=== PATIENT | male | born 1945 | race Caucasian/White ===

== ENCOUNTER 2018-07-11 10:00 | Day surgery (SDC) | payer MEDICARE, SELFPAY ==
[2018-07-06 11:57] VITALS: BMI 28.1
[2018-07-11] VITALS (9 sets, daily range): BP systolic 138–155; BP diastolic 74–86; PULSE 70–81; RESP 11–20; TEMP 36.2–36.8; O2SAT 93–98; BMI 27.1
--- NOTE | 2018-07-11 11:41 | PM.PREOP ---
Pre-operative Note Interval Note History & Physical reviewed/Exam performed by Physician: Yes Changes to H&P: No
[2018-07-11] MEDS: LACTATED RINGERS 1,000 ML 42 ML IV (12:00)
[2018-07-11] MEDS: INSULIN REGULAR 100 UNIT/ML 3 ML VIAL SUBCUT (12:01)
--- NOTE | 2018-07-11 12:09 | SUR.PREOP ---
Pt reports numbness and tingling in left leg and left buttocks that is chronic.
[2018-07-11] MEDS: CEFAZOLIN 2 GM/100 ML FROZ.PIGGY IV (12:15)
--- NOTE | 2018-07-11 12:46 | SUR.OPER ---
Prone on spine table, head in foam head support, padded chest and pelvic supports, gel pad at knees, lower legs supported by pillows; nipples, genitalia and toes free of pressure, arms secured on foam padded arm boards at <90 degrees abduction. Tape over blanket at thigh secured to table.
[2018-07-11] MEDS: methylPREDNISolone acet DEPO 40 MG/ML VIAL INJ (12:51)
[2018-07-11] MEDS: BUPIVACAINE 0.25% W/ EPI VIAL 30 ML INJ (12:52)
--- NOTE | 2018-07-11 13:15 | DI.RAD.S_ITS ---
PROCEDURE: XR LUMBAR SPINE 2-3V INDICATIONS: L5-S1 MICRODISCECTOMY TECHNIQUE: 2 views of the lumbar spine were acquired. COMPARISON: [facility], MR, MR LUMBAR SPINE WITHOUT CONTRAST, 06/26/2018, 14:07. [facility], CR, XR LUMBAR SPINE 2 OR 3 VIEWS, 06/26/2018, 10:44. FINDINGS: Bones: L5-S1 microdiscectomy port is centered over the posterior elements at that level, left-sided oblique approach. Soft tissues: Overlying bowel gas pattern is normal. No suspicious soft tissue calcifications. IMPRESSION: Successful port localization for microdiscectomy on the left at L5-S1. Dictated by: Wilberto Garcia M.D. on 07/11/2018 at 13:26 Approved by: Wilberto Garcia M.D. on 07/11/2018 at 13:27
--- NOTE | 2018-07-11 13:22 | PM.OP.1 ---
Operative Date/Time/Diagnoses Date of procedure: 07/11/18 Time of procedure: 12:22 Pre-op diagnosis: 1. L5-S1 disc herniation 2. L5-S1 spinal stenosis Post-op diagnosis: same Procedure & Clinicians Procedure: 1. L5-S1 microdiscectomy 2. Utilization of microsurgical technique and operating microscope Same procedure as scheduled: Yes Indications: Patient has been having chronic back pain and worsening lumbar radiculopathy. Patient failed multiple conservative management with worsening pain weakness and numbness in her lower extremity. Patient has been having difficulty performing activity of daily living. After discussing risks benefits of treatment options, patient elected proceed with surgery. Surgeon: Stephane Vasquez Assignment Officer: Enedina Young Click Yes if Unassisted: No Anesthesia Type: General Operative Notes Closure Type: primary Specimen(s): none sent Blood products transfused: none Procedure in detail: Patient was seen in the preoperative area. Risks and benefits of the surgery was discussed with the patient. Informed consent was obtained from the patient and placed in the chart. Surgical site was marked. Patient was taken to the operative room. General anesthesia was administered. Prophylactic antibiotic was given to the patient less than 30 min before the incision was made. Patient was placed into a prone position on the Noé table. Patient's back was then prepped and draped in the sterile fashion. Time-out was performed at this time. Using AP and lateral C-arm imaging the interval between L5-S1 was identified and marked on patient's back. A 1 inch incision 1 in from midline was made. The fascia was incised in line with skin incision. Globus MARS retractors was placed inside the incision and docked onto the L5 lamina. Using microsurgical technique and operating microscope, a L5 laminotomy was performed using a Kerrison rongeur. Liagamentum flavum was resected at the site of the laminotomy. The disc space at L5-S1 was identified. Microdiscectomy was performed by incising the annulus with #11 blade. A herniated disc fragment was extruded from the annulus incision. The disc fragment was causing significant compression on the traversing S1 nerve root. Microcurettes and pituitary was used to removed herniated disc fragments of disc from the epidural space. After the microdiskectomy was completed, the area medial lateral superior and inferior to the area of the microdiskectomy was inspected and explored using a micro curette. No other impinging structure was identified. The wound was then irrigated with sterile normal saline. 40 mg Depo-Medrol was placed into the epidural space. The deep fascia was closed with 1-0 Vicryl. The subcutaneous tissue was closed with 2-0 Vicryl. The skin was closed with 4-0 Monocryl. Patient tolerated the procedure well. There were no complications. Patient was transferred recovery room in stable condition.
[2018-07-11] MEDS: HYDROCODONE/ACET 5/325 TABLET 1 TAB PO (14:15)
== END 2018-07-11 14:43 | disposition home or self-care (01) ==
PROVIDERS: PCP Family Medicine; Visit Provider Orthopaedic Surgery Orthopaedic Surgery of the Spine
PROC: (CPT 63030; principal; 2018-07-11 12:45)
DX: M51.16 Intervertebral disc disorders with radiculopathy, lumbar region (principal); M48.07 Spinal stenosis, lumbosacral region; M43.17 Spondylolisthesis, lumbosacral region; I10 Essential (primary) hypertension; E78.00 Pure hypercholesterolemia, unspecified; E11.9 Type 2 diabetes mellitus without complications; Z79.84 Long term (current) use of oral hypoglycemic drugs
CPT/HCPCS: 63030; 72100; 76000; J0690; J1030; J2405; J2704; J3010

== ENCOUNTER 2019-07-19 08:45 | Day surgery (SDC) | payer MEDICARE, SELFPAY ==
[2019-07-08 09:39] VITALS: BMI 26.2
[2019-07-19] VITALS (17 sets, daily range): BP systolic 97–146; BP diastolic 66–83; PULSE 67–754; RESP 10–20; TEMP 35.9–36.9; O2SAT 95–98; BMI 26.2
--- NOTE | 2019-07-19 | DI.RAD.S_ITS ---
PROCEDURE: XR LUMBAR SPINE 2-3V INDICATIONS: L5-S1 TLIF TECHNIQUE: 2 intraoperative fluoroscopic views of the lumbar spine were acquired. COMPARISON: [facility], , XR LUMBAR SPINE 2-3V, 07/11/2018, 12:41. FINDINGS: Intraoperative fluoroscopic images of lower lumbar spine shows transpedicular fusion of L5 and S1 vertebral bodies with intervertebral spacer placement and at L5-S1 level. IMPRESSION: Fluoroscopy guidance was provided intraoperatively for fusion of L5 and S1 vertebral bodies. Dictated by: Anthony Baca M.D. on 07/19/2019 at 15:09 Approved by: Anthony Baca M.D. on 07/19/2019 at 15:11
[2019-07-19] MEDS: GABAPENTIN 300 MG CAPSULE PO (09:38)
[2019-07-19] MEDS: ACETAMINOPHEN 325 MG TABLET 975 MG PO (09:39)
[2019-07-19] MEDS: LACTATED RINGERS 1,000 ML 42 ML IV ×2 (09:40→13:59)
[2019-07-19] MEDS: CELECOXIB 200 MG CAPSULE 400 MG PO (09:40)
[2019-07-19] MEDS: CEFAZOLIN 2 GM/100 ML FROZ.PIGGY IV ×2 (12:13→20:14)
[2019-07-19] MEDS: BUPIVACAINE LIPOSOME 266 MG/20 ML VIAL INJ (13:01)
[2019-07-19] MEDS: BUPIVACAINE 0.25% W/ EPI 30 ML VIAL INJ (13:04)
--- NOTE | 2019-07-19 14:27 | P.OP_ITS ---
Operative Date/Time/Diagnoses Date of procedure: 07/19/19 Time of procedure: 12:27 Pre-op diagnosis: 1. L5-S1 spinal stenosis 2. L5-S1 recurrent disc herniation with radiculopathy Post-op diagnosis: same Procedure & Clinicians Procedure: 1. L5-S1 Postero-lateral and posterior interbody fusion 2. L5-S1 interbody cage placement. 3. L5-S1 decompressive laminectomy with bilateral facetecomies 4. L5-S1 Posterior non-segmental instrumentation 5. Grandy of bone marrow from iliac crest 6. Utilization of microsurgical technique and operating microscope Same procedure as scheduled: Yes Indications: Patient has been having chronic back pain and worsening lumbar radiculopathy. The patient had prior lumbar microdiskectomy with good relief of pain with recurrences with symptoms. Patient failed multiple conservative management with worsening pain weakness and numbness in her lower extremity. Patient has been having difficulty performing activity of daily living. After discussing risks benefits of treatment options, patient elected proceed with surgery. Surgeon: Stephane Vasquez Hooker Operator: Karen Funez'Brien Click Yes if Unassisted: No Anesthesia Type: General Operative Notes Closure Type: primary Specimen(s): none sent Prosthetic devices, grafts, tissues, transplants, or devices: Globus revolve screws, Rise cage Estimated Blood Loss (mL): 50 Blood products transfused: none Procedure in detail: Patient was seen in the preoperative area. Risks and benefits of the surgery was discussed with the patient. Informed consent was obtained from the patient and placed in the chart. Surgical site was marked. Patient was taken to the operative room. General anesthesia was administered. Prophylactic antibiotic was given to the patient less than 30 min before the incision was made. Patient was placed into a prone position on the Noé table. Patient's back was then prepped and draped in the sterile fashion. Time- out was performed at this time. Using AP and lateral C-arm imaging the interval between L5-S1 was identified and marked on patient's back. A 2 inch incision 2 in from midline was made on the left side first. The fascia was incised in line with skin incision. Globus MARS retractors was placed inside the incision and docked onto the L5 lamina. Using microsurgical technique and operating microscope, a L5 laminectomy and L5-S1 facetectomy was performed using a Kerrison rongeur. The disc space at L5-S1 was identified. And a total diskectomy was performed at L5-S1 level. The endplates were decorticated using a rasp and shaver. The total diskectomy and decortication was performed at L5-S1 level in order to to accomplish a L5-S1 fusion. The local bone from the laminectomy and facetectomy was saved for local bone grafting. After the total diskectomy and decortication was completed, Bio4 bone graft material was combined with local bone that was harvested earlier. At this time, a separate skin is incision was made over the iliac crest. A Jamshidi needle was inserted into the iliac crest through a separate skin incision. 5 cc of bone marrow aspiration was obtained through the separate skin incision using a Jamshidi needle from the iliac crest. The bone marrow aspiration was combined with local bone and the Bio4 bone grafting material. The bone grafting material was placed into the L5-S1 interbody space along with a expandable cage. The cage was expanded to its maximum height using the torque limiting screwdriver. At this time a mirror image incision was made on the right side. The fascia was incised in line with the skin incision. Globus MARS retractor was inserted and docked onto the L4-5 posterolateral gutter. Using the power drill, posterior- lateral decortication was performed at L5-S1 level until bleeding cortical bone was identified. The remaining bone grafting material was placed into the L4-5 posterior lateral gutter he order to accomplish posterolateral fusion at the L5- S1 level. Using the double C-arm technique, pedicle screws were placed into the L5-S1 pedicles bilaterally. This was done by placing the Jamshidi needle into the pedicles, then placing the guidewires over the Jamshidi needle, and finally placing the cannulated screws over the guidewires bilaterally. After the pedicle screws were placed, 2 titanium rods was locked into the heads of the pedicle screws using locking caps and torque limiting screwdriver. After all the hardware was placed, and confirmed with AP and lateral C-arm imaging, the wound was then irrigated with sterile normal saline and packed with Ray-Fany gauze for 3 min to accomplish hemostasis. After the gauze was removed the deep fascia was closed with #1 Vicryl suture. The subcutaneous layer was closed with 2-0 Vicryl. The skin was closed with skin edilberto. Patient tolerated the procedure well. There were no complications. Complications: none Post-operative Condition: stable Disposition: PACU Plan for aftercare: Admit to inpatient hospital
[2019-07-19] MEDS: HYDROMORPHONE 2 MG INJ IV ×4 (14:47→15:04)
[2019-07-19] MEDS: hydrOXYzine pamoate 25 MG CAPSULE 50 MG PO (15:43)
[2019-07-19] MEDS: SODIUM CHLORIDE 0.9% 1,000 ML 100 ML IV (16:36)
[2019-07-19] MEDS: METFORMIN HCL 500 MG TABLET 1000 MG PO (16:40)
[2019-07-19] MEDS: SIMVASTATIN 40 MG TABLET PO (16:40)
--- NOTE | 2019-07-19 17:20 | PC.NURSE ---
Admission note: Patient arrived to floor A&O x4, pleasant and cooperative w/ staff. Pt reports pain 6/10 but tolerable and states some infreq. spasms from time to time. Patient's partner at bedside. Pt states baseline he has neuropathy in LLE, it is improved since surg. but still minimally present. Pt is eager to eat dinner. Education done regarding surgical precautions, using call light, ordering meals properly given dx: of DM. Pt is compliant with plan and care discussed at bedside, call light w/in reach, bed in low pos.
[2019-07-19] MEDS: HYDROCODONE/ACET 5/325 TABLET 2 TAB PO (17:48)
[2019-07-19] MEDS: DOCUSATE 100 MG CAPSULE PO (20:18)
[2019-07-19] MEDS: SENNOSIDES 8.6 MG TABLET 17.2 MG PO (20:19)
[2019-07-20 00:10] VITALS: BP 148/78; PULSE 73; RESP 19; TEMP 37; O2SAT 94
[2019-07-20] MEDS: HYDROCODONE/ACET 5/325 TABLET 2 TAB PO ×3 (00:11→12:27)
[2019-07-20] MEDS: SODIUM CHLORIDE 0.9% 1,000 ML 100 ML IV (00:11)
[2019-07-20 05:00] VITALS: BP 126/75; PULSE 77; RESP 19; TEMP 36.8; O2SAT 93
[2019-07-20] MEDS: CEFAZOLIN 2 GM/100 ML FROZ.PIGGY IV (05:00)
[2019-07-20 07:30] VITALS: BP 128/74; PULSE 67; RESP 16; TEMP 37.5; O2SAT 94
[2019-07-20] MEDS: DOCUSATE 100 MG CAPSULE PO (08:12)
[2019-07-20] MEDS: PANTOPRAZOLE 20 MG TABLET PO (08:12)
[2019-07-20] MEDS: hydroCHLOROthiazide 25 MG TABLET PO (08:12)
[2019-07-20] MEDS: METFORMIN HCL 500 MG TABLET 1000 MG PO (08:12)
[2019-07-20] MEDS: FLUoxetine 20 MG CAPSULE 40 MG PO (08:13)
--- NOTE | 2019-07-20 10:04 | PT.IIE ---
Current Diagnoses Spinal stenosis, lumbar region without neurogenic claudication (07/19/19) Other specified postprocedural states (07/19/19) Surgery Performed Operation Date: 07/19/19 11:15 Actual Procedures p L5-S1 TLIF - Stephane Vasquez MD Surgical History (Last Updated 07/08/19 @ 10:12 by Alisa Hammond, RN) History of arthroplasty of right knee (Acute ~2006) History of vasectomy (Acute) Hx of arthroscopy of left knee (Acute) Hx of colonoscopy (Acute 02/06/18) Hx of hemorrhoidectomy (Acute) Hx of hernia repair (Acute) Hx of microdiscectomy (Acute 07/11/18) Hx of tonsillectomy (Acute) Medical History (Last Updated 07/08/19 @ 10:22 by Alisa Hammond, GUILLE) Anxiety (Acute) BCC (basal cell carcinoma) (Acute ~1994) Depression (Acute) Diabetes (Acute) Diverticulitis (Acute ~2013) Hearing impaired (Acute) HTN (hypertension) (Acute) Hyperlipidemia (Acute) Hypomagnesemia (Acute) Knee fracture, right (Acute) Malaria (Acute ~1967) Peyronie's disease (Acute) PTSD (post-traumatic stress disorder) (Acute) Reflux esophagitis (Acute) Renal stones (Acute ~2008) RLS (restless legs syndrome) (Acute) SCC (squamous cell carcinoma) (Acute ~05/2019) Sciatica (Acute) Physical Therapy Inpatient Evaluation/Re-Eval M1 PT/OT-IP Prior Functional Status Start: 07/20/19 13:27 Freq: NEEDED Status: Active Protocol: Document 07/20/19 10:04 AB (Rec: 07/20/19 13:41 AB [id number]) Medical Review Prior Functional Status Medical History Reviewed Yes Communication able to make needs known Mobility and Gait pt stated that he is independent with all mobilities and ambulation without AD Social History Household Members spouse Living Arrangements House Number of Floors (Floors) One Floor Number of Stairs To Enter/Railing? 2 platform steps to enter without rails Home Environment High Toilet,Walk in Shower Home Equipment Front Wheel Walker,Hand Held Shower M2 PT-IP Current Condition Start: 07/20/19 13:27 Freq: NEEDED Status: Active Protocol: Document 07/20/19 10:04 AB (Rec: 07/20/19 13:41 AB [id number]) Physical Therapy Current Condition Current Condition Evaluation Date 07/20/19 Treatment Diagnosis s/p L5-S1 posterior fusion/ lami; difficulty in walking Onset Date 07/19/2019 Precautions Lumbar Precautions Log Roll,No Twisting,Limit Bending,Lifting Restriction of 10 lbs,Gait Belt above Incisional Area M3 PT-IP Subjective Start: 07/20/19 13:27 Freq: NEEDED Status: Active Protocol: Document 07/20/19 10:04 AB (Rec: 07/20/19 13:41 AB [id number]) Subjective Physical Therapy Visit Type Type Initial Evaluation Visit Start Time 10:04 Visit Stop Time 10:43 Total Visit Minutes 39 Number of ASSOCIATE [employer] Visits 0 Physical Therapy Visit Comments Patient Comments pt agreeable to do PT Patient Goals to go home Therapy Pain Assessment Pain When Pain Assessed At Rest Pain Present Pain Present Pain Reported Location Back Intensity 6 Scale Used Numeric (1 - 10) Pain Management Techniques Re-positioning,Timing of Activity with Medications M4 PT-IP Mobility and Gait Start: 07/20/19 13:27 Freq: NEEDED Status: Active Protocol: Document 07/20/19 10:04 AB (Rec: 07/20/19 13:41 AB [id number]) PT-Bed Mobility Assessment Rolling Type of Rolling Log Rolling Level of Assist Standby Assistance Supine to Sit Supine to Sit Standby Assistance Sit to Supine Sit to Supine Standby Assistance Scooting Scooting to Edge of Bed Standby Assistance Scooting Up and Down in Bed Standby Assistance PT-Transfer Assessment Sit to and From Stand Sit to and from Stand Standby Assistance,1 Person Assistance,Use of Upper Extremities Equipment Transfer Assistive Device Gait Belt,Front Wheeled Walker Orthotic/Prosthetic Devices or Brace: No Transfers Transfer Destination Chair Transfer Technique Stand Step Pivot Transfer Ability Level of Assist Standby Assistance,1 Person Assistance,Use of Upper Extremities Comments Mobility Comments educated pt on back precautions and log roll bed mobility. pt completed log roll supine<>sit x 2 sets SBA with initial cues needed but does not need cues afterwards. pt completed sit <>stand x 3 reps requiring SBA with cues for techniques and safety but able to complete without cues afterwards. ambulated ~ 50 ft using FWW SBA. completed up/down platform step using FWW SBA to CGA and cues. pt ambulated back to his room. agreed to sit up on chair. positioned on chair. call light and table placed within reach. Gait Assessment Gait Gait Assistance Required: Standby Assistance Distance (Feet) 50 Able to Maintain Weight Bearing Status Yes During Gait Assistive Devices Assistive Device Gait Belt,Front Wheeled Walker Gait Deviations General Gait Pattern Antalgic,Decreased Stride Length,Decreased Feet Clearance Factors Limiting Gait Function Factors Limiting Gait Function Decreased Activity Tolerance, Decreased Sensation,Decreased Strength,Limited Range of Motion,Pain,Poor Balance,Poor Safety Awareness Comments Gait Comments pls refer to mobility section for details Stair Climbing Assessment Evaluation Level of Assist On Stairs Standby Assistance,Contact Guard Assistance Devices Stair Climbing Assistive Devices Front Wheel Walker Technique/Endurance Stair Climbing Direction Ascend and Descend Stair Climbing Technique Step to Step Number of Steps Climbed 1 Query Text: Stair Climbing Set # Repetitions (reps) 2 PT-Balance Assessment Sitting Balance and Reactions Static Sitting Balance Ability Good Dynamic Sitting Balance Ability Good Standing Balance and Reactions Static Standing Balance Ability Fair Dynamic Standing Balance Ability Fair Device Used FWW M5 PT-IP Objective Assessments Start: 07/20/19 13:27 Freq: NEEDED Status: Active Protocol: Document 07/20/19 10:04 AB (Rec: 07/20/19 13:41 AB [id number]) Orientation Orientation/Cognition Level of Alertness Alert Orientation Name Safety Awareness Decreased Safety Awareness Memory Description Short Term Impaired Gross Range of Motion Lower Extremity ROM Assessment Within Functional Limits Strength Lower Extremity Strength Assessment Within Functional Limits Coordination Assessment Gross Coordination Gross Coordination WNL Sensation Assessment Sensation Gross Sensation Right LE Impaired Sensation Description Numbness Comments Sensation Comments c/o numbness on R anterior thigh Muscle Tone Muscle Tone WNL Yes M6 PT-IP Treatment Start: 07/20/19 13:27 Freq: NEEDED Status: Active Protocol: Document 07/20/19 10:04 AB (Rec: 07/20/19 13:41 AB [id number]) Physical Therapy Treatment Education Education Provided Precautions,Weight Bearing Status,Post-Op Packet,Safety M7 PT-IP Assessment and Plan Start: 07/20/19 13:27 Freq: NEEDED Status: Active Protocol: Document 07/20/19 10:04 AB (Rec: 07/20/19 13:41 AB [id number]) PT Summary Assessment and Plan Potential Rehabilitation Potential Good Status of Condition at Evaluation Stable Summary Impairments Pain,ROM,Strength,Balance, Coordination,Sensation,Tone, Cognition,Bed Mobility, Transfers,Gait,Activity Tolerance Assessment Summary pt requiring SBA to CGA with mobility and has good carryover of education and mobility. Pt. plans to go home and spouse will assist. Goals Bed Mobility Goal Independent Transfer Goal Independent,Front Wheeled Walker Gait Goal Independent,Front Wheel Walker Gait Distance 200 Other Goals up/down 2 platform steps using FWW mod I Days to Meet Goals 3 Frequency of Treatment Frequency Of Treatment Twice a Day Treatment Plan Physical Therapy Treatment Plan Bed Mobility Training,Transfer Training,Gait Training, Therapeutic Exercise,Balance Retraining,Post Op Education, Discharge Planning,Hot or Cold Pack,Neuromuscular Re-ed, Coordination Retraining,Manual Therapy Recommendations To Nursing Amount of Assist Needed 1 Person Assist Discharge Recommendations PT Discharge Recommendations Home with Assistance Transportation Needs at Discharge Private Vehicle
--- NOTE | 2019-07-20 11:02 | P.PN_ITS ---
Subjective Subjective Date Patient Seen: 07/20/19 Time Patient Seen: 11:02 Interval history: Patient is a 73 year old male who is POD#1 s/p a L5-S1 TLIF with Dr. Vasquez. No events overnight. His pain has been mild to moderate and well controlled with [place]. He has mobilized with PT both about the room and in the halls successfully. Does not a small area of decreased sensation on the right anterior thigh. He has voided appropriately and his vitals are stable. He denies any chest pain, shortness of breath, nausea or vomiting. Exam Vital Signs (past 8 hours): - 07/20/19 05:00 07/20/19 07:30 Temperature 98.2 F 99.5 F Pulse Rate 77 67 Respiratory Rate 19 16 Blood Pressure 126/75 128/74 Pulse Oximetry 93 94 Oxygen Delivery Method Room Air Oxygen Flow Rate 0 Narrative Exam Narrative: 73 year old male resting comfortably in the chair, alert and oriented in no acute distress. Dressing in place over lumbar spine is CDI. 5/5 BLE. Sensation decreased to light touch along right anterior thigh, otherwise intact. Assessment & Plan Assessment & Plan narrative: Patient is doing well postoperatively. He has mobilized well with PT. Pain is well controlled with [place], prescription provided. He is stable for discharge to home later today.
--- NOTE | 2019-07-20 12:00 | OT.IP.TRT ---
Current Diagnoses Spinal stenosis, lumbar region without neurogenic claudication (07/19/19) Other specified postprocedural states (07/19/19) Surgery Performed Operation Date: 07/19/19 11:15 Actual Procedures p L5-S1 TLIF - Stephane Vasquez MD Occupational Therapy Treatment Note M3 OT- IP Subjective and Pain Start: 07/20/19 17:07 Freq: Status: Active Protocol: Document 07/20/19 12:00 PJM (Rec: 07/20/19 17:09 PJM [id number]) OT- Subjective Occupational Therapy Visit Type Type Administrativ e Note Visit Start Time 12:00 Notes OT referral received. Pt already dressed and ready to d/c when therapist arrived. Attempted brief education re: adapted ADLS and lumbar spine precautions, but pt/ prefer to have assist with ADLS PRN and they both decline instruction at this time. NO charge.
--- NOTE | 2019-07-20 12:08 | CM.DANOTE ---
DCP/Assessment: Reviewed chart. Patient is a 73yr old male admitted to [facility] for elective Lami performed by Dr. Vasquez on 07-19-19. PCP is Dr. Jo. Primary payor is 1)Medicare 2)[facility]. Met with patient and spouse at bedside explained CM/SW role. Patient sitting up in recliner at time of visit. Patient plans to d/c home today. Patient has FWW for home use. Prior to surgery patient I with all ADL's. P: Home today. No identified d/c planning needs at this time. SHEMAR Mg Discharge Planning/Care Management Advanced directive, confirm from FAMILY Start: 07/19/19 17:43 Freq: Q24H Status: Active Protocol: Document 07/19/19 19:05 AKP (Rec: 07/19/19 19:05 AKP [id number]) Advance Directive, confirm on record Time 19:05 Person contacted Copy received No CM Discharge Assessment Start: 07/20/19 12:05 Freq: Status: Active Protocol: Document 07/20/19 12:05 KJS (Rec: 07/20/19 12:07 KJS [id number]) Discharge Planning Assessment Assigned Wincher SHEMAR Mg Contact Information Manas Cobian (spouse) Advance Directives? Yes Advance Directives on File No History Provided By Patient,Medical Record Prior Living Arrangements House Household Members spouse Type of transporation used prior to Drives own vehicle admit Independent with ADL's Yes Is patient alert and oriented? Yes Caregiver for Another No DME Already Rented / Owned FWW / Walker Barriers to Discharge No Discharge Plan Home Transportation Arrangement Family to provide transport. Referrals Initiated None needed Whiteboard Updated in Patient Room with Yes name and ext. # of Wincher Review Status In Process Next Review Type Continued Stay Review Pre-Anesthesia Assessment Start: 07/08/19 09:39 Freq: Status: Complete Protocol: Document 07/08/19 09:39 CAB (Rec: 07/08/19 10:36 CAB [id number]) Pre-Anesthesia Assessment Patient Information Reviewed Via Phone Assessment Assessment Completed With Patient Comment Pt has not completed at time of assessment Primary Care Provider Cyrus Jo Seen Specialist in Last 12 Months Yes Specialist Seen Kindergarten Tutor,Opthamologist/ Artificial Leather Calender Operator,Orthopedist Primary Language [place] Coiling Machine Setter Required No Height 190.5 cm Weight 95.254 kg Body Mass Index (BMI) 26.2 Hearing Ability Hard of Hearing,Use of Hearing Aid Visual Assist Glasses Dentition Type Teeth, Natural Present Barriers to Learning None Hx Anesthesia Reactions No Hx Family Anesthesia Reaction No Hx Malignant Hyperthermia No Hx Blood Transfusions No Anesthesia Review Requested No Reinstatement Clerk No alcohol intake current alcohol intake frequency a few times a week Smoking Status Former smoker Tobacco type cigarettes,pipe,cigars how long ago did patient quit smoking Quit 40 years ago Substance Use Type does not use Pain Present Pain Reported Musculoskeletal Symptoms Abnormal Gait,Back Pain, Difficulty Walking,Muscle Weakness,Neck Pain,Numbness, Radiating Pain into Limb, Tingling History of Falling (Recent or History of No ) Patient is completely paralyzed or No completely immobile Mental Status Oriented to own ability Comment Balance issues Is patient on oxygen? No Does patient have ROBERTS/SOB No Hx Sleep Apnea No CPAP/BIPAP use not prescribed Currently Taking a Beta Deng No Can You Climb a Flight of Stairs Without Yes SOB Hx Chest Pain No Hx SOB No Hx Syncope or Dizziness No Anti-Coagulant Therapy No Has a Reservoir Caretaker No Cardiac Testing No Hx Pacemaker/ICD No Pacemaker Rep Required? No Cardiac Clearance Received Not Applicable Diet Type At Home Regular dysphagia No Urinary Catheter Present No Hx Urinary Self Catheterization No Diabetes Yes: Pt checks blood sugar every 3 days Hx Drug Resistant Organism No Presence of External or Internal Medical Yes: Right knee prosthesis, Devices hernia mesh Have you traveled outside the [facility] States in the last 30 days? Marital Status Lives With spouse Prior Living Arrangements House Number of Floors (Floors) One Floor Support System Spouse Does the Patient Have Assistance After Yes Surgery Patient Discharge Plan Description Return Home Comment Pt not advised on length of stay per surgeon Feels Safe in Current Environment Yes Been Physically Hurt or Threatened By a No Person in Current Environment Do you have thoughts of harming yourself None or others? Are you currently considering suicide? No Do you have a plan to hurt yourself or No Plan others? Do You Have Any Spiritual Beliefs That No May Affect Your HC Choices? Do You Have Any Cultural Practices That No May Affect Your HC Choices? Comment Savage Who Can We Speak to About Patient's Care Family, friends Identifying Code for Release of Patient Declines to issue Information Health Care Proxy/Next of Kin Manas () Health Care Proxy Emergency Contact Name Manas () Emergency Contact Advance Directives? Yes Advance Directives on File No Requested Patient Bring Advanced Yes Directives DOS Power of Grassroots Organizer Yes Power of Grassroots Organizer Name Manas () Power of Grassroots Organizer PAC Instructions Durable medical equipment, Medications to take/avoid, Nasal antibiotic,No ETOH/ petroleum product on skin DOS, NPO,Post-op transportation,Pre -surgical wash,Sturdy shoes/ comfortable clothes,Do not bring valuables and remove jewelry
--- NOTE | 2019-07-20 12:49 | PC.NURSE ---
Day shift: Taken to car driven by Pt's by this freelance copywriter in . Paperwork signed and all questions answered. Dressing changed per PA order. Pt has all personal belongings. Pt was also given the MD scrips. Medicated the Pt w/ [place] per JUL prior to d/c. Coversite CDI.
== END 2019-07-20 12:51 | disposition home or self-care (01) ==
LOC: AC 07-20 12:01 → OR 07-21 07:48
PROVIDERS: PCP Family Medicine; Referring Provider Orthopaedic Surgery Orthopaedic Surgery of the Spine; Visit Provider Orthopaedic Surgery Orthopaedic Surgery of the Spine
PROC: (CPT 22633; principal; 2019-07-19 11:15)
DX: M51.16 Intervertebral disc disorders with radiculopathy, lumbar region (principal); M48.061 Spinal stenosis, lumbar region without neurogenic claudication; M43.17 Spondylolisthesis, lumbosacral region; Z98.890 Other specified postprocedural states
CPT/HCPCS: 22633; 22840; 22853; 20939; 63047; 72100; 76000; 82962; 97116; 97161; C1776; C9290; J0330; J0690; J1170; J2405; J2704; J3010